=== PATIENT | female | born 1945 | race Caucasian/White ===

== ENCOUNTER 2016-11-09 01:30 | Inpatient (IN) | payer MEDICARE, OTHER ==
[2016-11-06 11:17] VITALS: BP 167/66
--- NOTE | 2016-11-06 12:31 | DIREP ---
PROCEDURE:CHEST 2 VIEWS COMPARISON:None. INDICATIONS:PRE-OP OA RT KNEE FINDINGS: LUNGS/PLEURA:No significant pulmonary parenchymal abnormalities. No effusions. VASCULATURE:Normal. Unremarkable pulmonary vasculature. CARDIAC:Normal. No cardiac silhouette abnormality or cardiomegaly. MEDIASTINUM:Normal. No visible mass or adenopathy. BONES:Mild degenerative changes of the mid-lower thoracic spine are noted. OTHER:Negative. CONCLUSION: 1. No acute cardiopulmonary disease is demonstrated. Dictated by: Abelardo Patrick M.D. on 11/06/2016 at 12:30 PM
[2016-11-06 13:45] LABS: BASOPHIL # 0.1 10^3/uL (0.0-0.1); EOSINOPHIL # 0.3 10^3/uL (0.0-0.2); EOSINOPHIL % 4.3 % (0.0-5.0); HEMATOCRIT 39.6 % (36.0-46.0); HEMOGLOBIN 13.5 g/dL (12.0-15.0); LYMPHOCYTES # 1.2 10^3/uL (1.0-4.8); LYMPHOCYTES % 19.5 % (24.0-44.0); MEAN CELL HGB 31.7 pg (26-34); MEAN CELL HGB CONCENTRATION 34.1 g/dL (33-37); MEAN PLATELET VOLUME 10.4 fL (7.8-11.0); MONOCYTES # 0.8 10^3/uL (0.3-0.8); NEUTROPHIL # 3.7 10^3/uL (1.8-7.7); NEUTROPHILS % 61.2 % (41.0-85.0); RED CELL DISTRIBUTION WIDTH 13.4 % (11.5-14.5)
[2016-11-06 14:11] LABS: ALANINE AMINOTRANSFERASE 26 U/L (12-78); ALKALINE PHOSPHATASE 71 U/L (50-136); ASPARTATE AMINO TRANSFERASE 18 U/L (0-35); GLUCOSE 83 mg/dL (70-110)
[~2016-11-09] VITALS: Ht 154.9 cm; Wt 83.7 kg
[2016-11-09] VITALS (15 sets, daily range): BP systolic 130–164; BP diastolic 67–96
[~2016-11-09 01:30] MED LIST: ANAS1TAB PO; CALC-76 PO; CHOL100011 PO; LEVO100T5 PO; LISI1TAB5 PO; MULT-235 PO; RED600TA PO; VIT-3 PO
[2016-11-09] MEDS ORDERED: NS 250ML 250 ML IV ONE (05:07)
[2016-11-09] MEDS ORDERED: BACTROBAN NASAL NS ONE ×3 (05:07→19:55)
[2016-11-09] MEDS ORDERED: LACTATED RINGERS 1,000 ML ONE ×2 (05:07→08:21)
[2016-11-09] MEDS ORDERED: VANCOMYCIN HCL 2 GM ONE (05:07)
[2016-11-09] MEDS ORDERED: VANCOMYCIN HCL 1.5 GM in NS 500ML 500 ML IV ONE (06:30)
[2016-11-09] MEDS: LACTATED RINGERS 1,000 ML IV SCH (08:19)
[2016-11-09] MEDS ORDERED: NAROPIN 5% 5 MG/ML VIAL ONE (08:19)
[2016-11-09] MEDS ORDERED: DECADRON ONE (08:19)
[2016-11-09] MEDS ORDERED: XYLOCAINE ONE ×2 (08:19→08:21)
[2016-11-09] MEDS ORDERED: EPHEDRINE SULFATE ONE (08:20)
[2016-11-09] MEDS ORDERED: ZEMURON IV ONE (08:20)
[2016-11-09] MEDS ORDERED: TORADOL ONE (08:20)
[2016-11-09] MEDS ORDERED: ZOFRAN ONE (08:20)
[2016-11-09] MEDS ORDERED: XYLOCAINE 2%-EPI 1:100,000 ONE (08:21)
[2016-11-09] MEDS ORDERED: DIPRIVAN IV ONE (08:21)
[2016-11-09] MEDS ORDERED: VERSED ONE (08:22)
[2016-11-09] MEDS ORDERED: SUBLIMAZE ONE (08:22)
[2016-11-09] MEDS ORDERED: ASTRAMORPH-PF ONE (08:26)
--- NOTE | 2016-11-09 08:39 | PCM.HP ---
History of Present Illness Reason for Visit: Right knee pain History of Present Illness 71yo female complains of right knee pain for several years. She complains of night pain and she has tired Alieve for pain with minimal relief. In 2014 she had arthroscopy with partial medial menisectomy. She has had left total knee arthroplasty several years ago with good results. Her xrays do show bone on bone laterally with patello femoral bone on bone. Past Medical History Cardiac: HTN Heme/Onc: Cancer (hx BRCA) Endocrine: Hypothyroidism Past Surgical History: Arthroscopy (right knee), Breast Biopsy, Total knee replacement (Left), Tonsillectomy Past Social History Smoke: No Alcohol: occassional Travel Hx EBOLA RISK:Travel to/contact w: No Review of Systems Musculoskeletal: : leg pain (Right knee pain) Allergies: Coded Allergies: No Known Allergies (Unverified , 11/06/16) Scheduled Anastrozole (Anastrozole) 1 TAB PO HS (Reported) Calcium Carb & Cit/Vitamin D3 (Calcium + D3 Er Tablet) 1 EACH PO BID (Reported) Levothyroxine Sodium (Levothyroxine Sodium) 100 MCG PO DAILY (Reported) Lisinopril/Hydrochlorothiazide (Lisinopril-Hctz 20-12.5 Mg Tab) 1 EACH PO DAILY (Reported) Multivitamin (Multi-Vitamin Daily) 1 EACH PO DAILY (Reported) Vit A/C/E AC/Znox/Cupric Oxide (Eye Vitamin-Minerals Tablet) 1 EACH PO BID ( Reported) Discontinued Medications Cholecalciferol (Vitamin D3) (Vitamin D) 1,000 UNIT PO DAILY (Reported) Discontinued Reason: Discontinue VTE VTE Risk Total Score: >5 VTE Risk Score VTE Risk: Score 0-1 = Low Risk (Aggressive mobilization; early ambulation; no VTE prophylaxis required) Score 2: Moderate Risk (Intermittent/Pneumatic Compression Device OR Lovenox/Heparin/Coumadin) Score 3-4: High Risk (Intermittent/Pneumatic Compression Device AND Lovenox/Heparin/Coumadin) Score > or =5: Highest Risk (Intermittent/Pneumatic Compression Device AND Lovenox/Heparin/Coumadin) VTE VTE Present on Admission: No Currently receiving anticoagul: No VTE Risk Total Score: >5 Exam Vital Signs Vital Signs Date Time Temp Pulse Resp B/P Pulse Ox O2 Delivery O2 Flow Rate FiO2 11/09/16 08:13 98.1 88 16 154/69 96 Room Air General Appearance: Alert, Oriented X3, Cooperative, No acute distress HEENT: Atraumatic Respiratory: Clear to auscultation, Normal air movement Cardiovascular: Regular rate, Normal S1, Normal S2, No murmurs Abdominal: Normal bowel sounds, Soft, No tenderness, No hepatospenomegaly Extremities: No clubbing, No cyanosis, No edema, Normal pulses, Other (Right knee full extension, 120 degrees flexion, moderate crepitation, good medial and lateral stability) Skin: No rash, No breakdown, No lesions Neuro: Normal gait, Normal speech, Strength at 5/5 X4 ext, Normal tone, Sensation intact, Cranial nerves 3-12 NL, Reflexes 2+ Psych/Mental Status: Mental status NL, Mood NL Assessment/Plan Assessment/Plan Assessment/Plan A: OA right knee P: Right total knee arthroplasty Problems: (1) Osteoarthritis of right knee Status: Chronic ICD Code: M17.11 SNOMED: 179906686 (2) HTN (hypertension) Status: Chronic ICD Code: I10 SNOMED: 62856254 (3) Hypothyroidism Status: Chronic ICD Code: E03.9 SNOMED: 88456621 (4) HX: breast cancer Status: Resolved ICD Code: Z85.3 SNOMED: 546801449 Patient History: Deafness or hearing loss 19 CHILD, Age:45 FH: kidney disease 19 CHILD, Age:45 (KIDNEY TRANSPLANT 2004) FH: mental retardation 19 CHILD, Age:45 FHx: scoliosis 19 CHILD, Age:45 Hypertension 32 MOTHER, , Age:67 33 FATHER, , Age:90 G8 BROTHER, Age:68 G8 BROTHER, Age:63 G8 SISTER, Age:67 19 CHILD, Age:45 No Family History of: Alzheimer's disease Asthma Cerebrovascular disorder Chronic obstructive pulmonary disease Congestive heart failure Diabetes insipidus Diabetes mellitus Parkinson's disease KEITH JOHNSON PAC Nov 09, 2016 08:39
[2016-11-09] MEDS ORDERED: AMBIEN PO PRN (09:00)
[2016-11-09] MEDS ORDERED: CEPACOL SORE THROAT LOZENGE MM PRN (09:00)
[2016-11-09] MEDS ORDERED: VANCOMYCIN HCL IV SCH (09:00)
[2016-11-09] MEDS: PEPCID PO SCH (09:00)
[2016-11-09] MEDS: COLACE PO SCH (09:00)
[2016-11-09] MEDS ORDERED: LACTATED RINGERS 1,000 ML IV SCH (09:00)
[2016-11-09] MEDS ORDERED: BACTROBAN NASAL NS PRN (09:00)
[2016-11-09] MEDS ORDERED: TYLENOL PO ONE (09:41)
[2016-11-09] MEDS ORDERED: TYLENOL PO STA ×2 (09:43→09:48)
[2016-11-09] MEDS ORDERED: TRANEXAMIC ACID IV ONE ×2 (10:28→11:06)
[2016-11-09] MEDS ORDERED: SODIUM CHLORIDE IR ONE ×2 (11:03→11:56)
--- NOTE | 2016-11-09 14:30 | NUR ---
Pt on unit Pt arrived on unit via bed. Received report and assumed care of pt. Special vitals started. TELE monitor applied for cont pulse ox. Fluids and snacks provided. Call light within reach. Will continue to monitor pt.
--- NOTE | 2016-11-09 16:39 | OPH ---
DATE OF SURGERY: 11/09/2016 PREOPERATIVE DIAGNOSIS: OA of the right knee. POSTOPERATIVE DIAGNOSIS: OA of the right knee. OPERATIVE PROCEDURE: Right total knee arthroplasty using Medacta Sphere knee, size 2+ femur, a size 2 tibia, 10 mm insert with a medium dome patella. All components were cemented. SURGEON: Manolo Mckeon MD ANESTHESIA: General endotracheal. TOURNIQUET TIME: 64 minutes at 300 mmHg. DRAINS: None. BLOOD LOSS: 300 mL. DESCRIPTION OF INDICATIONS: This is a 71-year-old female with a several year history of pain about the right knee. She has night pain as well as pain with household ambulation. The patient has had arthroscopy with partial meniscectomy in the past. She has also had a long trial of anti-inflammatories including Aleve and ibuprofen. She has had several cortisone injections with only temporary relief. The patient has full extension of the knee with 120 degrees of flexion, moderate crepitation, 1+ effusion, good medial and lateral stability. The x-rays showed that she has [id number] appearance of the lateral compartment of her knee as well as fairly severe patellofemoral narrowing with osteophytes. She was taken to the operating room for right total knee arthroplasty for pain relief. DESCRIPTION OF PROCEDURE: The patient was given 1 gram of vancomycin before induction of anesthesia. The patient was then given a general endotracheal anesthetic. A well-padded tourniquet was placed around the right thigh. Right lower extremity was then sterilely prepped and draped. The patient then had the leg exsanguinated with an Esmarch and then the tourniquet was inflated to 300 mmHg with a good bounce. The patient had an anterior incision made about knee. Incision was taken through the skin and the subcutaneous tissues. Full thickness flaps were developed medially and laterally. The patient had a medial parapatellar arthrotomy performed. The patient then had the patella deviated laterally. Medial and lateral meniscectomies were performed. The anterior and posterior cruciate ligaments were released. The patient had the RespectanceKnee femoral cutting guide placed about the distal femur and held into position with multiple pins. The distal femoral cut was then made with the power saw. The #2 jig, size 2+ was then placed about the distal femur. The anterior and posterior femoral cuts were made as well as the chamfer cuts. The tibia was subluxed anteriorly. The tibial cutting guide was placed and held into position with multiple pins. Tibial cut was then made. The tibia was sized and a size 2 tibial trial had the best coverage. The trial component was held into position with multiple pins. The central drill hole was used and then the cruciate punch was used to stabilize the tibial trial component. The patient then had a 10 mm insert applied. The femoral trial component was impacted. The knee went out into full extension. She had 120 degrees of passive flexion, excellent medial and lateral stability throughout the range of motion. The patella was everted. The peripheral edges were cauterized. The patellar cut was made. There was still 14 mm of patella left. The drill holes were made. A medium trial patella had good coverage and satisfactory tracking. The final medial and lateral femoral drill holes were made. The femoral sulcus cut was made. The trial components were all removed at that point and then the wounds were copiously irrigated and the bone ends were dried. The patient had the size 2 tibial component cemented into position. The polyethylene insert was then impacted and secured with an anterior screw. The femoral component was cemented as was the patellar component. Once all the excess cement was removed and the cement had hardened, the tourniquet was released. The bleeding was controlled with the Aquamantys device. The capsule was closed with a #2 PDS in interrupted [id number] manner. The joint was injected with 1 gram of tranexamic acid in 90 mL of saline. The subcutaneous was closed with a 2-0 Monocryl barbed in a running manner and then the skin was closed with william. An Aquacel dressing was applied, reinforced with a compressive dressing. The patient was extubated in the operating room, sent to recovery in stable condition. Manolo Mckeon MD DR: CHAVA/nevaeh JOB# [id number]
--- NOTE | 2016-11-09 17:10 | PRM.PN ---
Subjective Subjective Subjective Doing well Pain ok VSS NVM+ Stable Patient History: Deafness or hearing loss 19 CHILD, Age:45 FH: kidney disease 19 CHILD, Age:45 (KIDNEY TRANSPLANT 2004) FH: mental retardation 19 CHILD, Age:45 FHx: scoliosis 19 CHILD, Age:45 Hypertension 32 MOTHER, , Age:67 33 FATHER, , Age:90 G8 BROTHER, Age:68 G8 BROTHER, Age:63 G8 SISTER, Age:67 19 CHILD, Age:45 No Family History of: Alzheimer's disease Asthma Cerebrovascular disorder Chronic obstructive pulmonary disease Congestive heart failure Diabetes insipidus Diabetes mellitus Parkinson's disease VTE VTE Risk Total Score: >5 VTE Risk Score VTE Risk: Score 0-1 = Low Risk (Aggressive mobilization; early ambulation; no VTE prophylaxis required) Score 2: Moderate Risk (Intermittent/Pneumatic Compression Device OR Lovenox/Heparin/Coumadin) Score 3-4: High Risk (Intermittent/Pneumatic Compression Device AND Lovenox/Heparin/Coumadin) Score > or =5: Highest Risk (Intermittent/Pneumatic Compression Device AND Lovenox/Heparin/Coumadin) Review of Systems Musculoskeletal: : leg pain (Right knee pain) Allergies: Coded Allergies: No Known Allergies (Unverified , 11/06/16) Scheduled Anastrozole (Anastrozole) 1 TAB PO HS (Reported) Calcium Carb & Cit/Vitamin D3 (Calcium + D3 Er Tablet) 1 EACH PO BID (Reported) Levothyroxine Sodium (Levothyroxine Sodium) 100 MCG PO DAILY (Reported) Lisinopril/Hydrochlorothiazide (Lisinopril-Hctz 20-12.5 Mg Tab) 1 EACH PO DAILY (Reported) Multivitamin (Multi-Vitamin Daily) 1 EACH PO DAILY (Reported) Vit A/C/E AC/Znox/Cupric Oxide (Eye Vitamin-Minerals Tablet) 1 EACH PO BID ( Reported) Discontinued Medications Cholecalciferol (Vitamin D3) (Vitamin D) 1,000 UNIT PO DAILY (Reported) Discontinued Reason: Discontinue Objective Vitals and I/O Vital Sign - Last 24 Hours 11/09/16 11/09/16 11/09/16 11/09/16 08:04 08:13 08:30 08:35 Temp 98.1 Pulse 88 86 94 Resp 16 18 18 B/P 154/69 164/88 162/86 Pulse Ox 96 100 100 O2 Delivery Room Air Room Air Nasal Canula Nasal Canula 11/09/16 11/09/16 11/09/16 11/09/16 08:45 08:47 13:40 13:40 Temp 98.0 Pulse 87 84 91 Resp 18 18 18 B/P 161/81 163/71 142/67 Pulse Ox 100 100 98 O2 Delivery Nasal Canula Nasal Canula Nasal Canula O2 Flow Rate 3 11/09/16 11/09/16 11/09/16 11/09/16 13:45 13:50 13:55 14:00 Temp 98.2 97.8 Pulse 90 83 92 85 Resp 18 18 18 18 B/P 142/67 142/76 142/73 137/74 Pulse Ox 97 99 99 97 O2 Delivery Nasal Canula Nasal Canula Nasal Canula Room Air 11/09/16 11/09/16 11/09/16 11/09/16 14:05 14:10 14:15 14:20 Temp 98.0 Pulse 83 83 85 82 Resp 19 18 18 18 B/P 138/72 130/80 144/96 150/76 Pulse Ox 99 94 97 95 O2 Delivery Room Air Room Air Room Air Room Air 11/09/16 11/09/16 11/09/16 14:48 14:49 15:59 Pulse 77 Resp 14 14 Pulse Ox 89 89 O2 Delivery Room Air Nasal Cannula O2 Flow Rate 2.00 FiO2 21 Medication Reconciliation Scheduled Anastrozole (Anastrozole) 1 TAB PO HS (Reported) Calcium Carb & Cit/Vitamin D3 (Calcium + D3 Er Tablet) 1 EACH PO BID (Reported) Levothyroxine Sodium (Levothyroxine Sodium) 100 MCG PO DAILY (Reported) Lisinopril/Hydrochlorothiazide (Lisinopril-Hctz 20-12.5 Mg Tab) 1 EACH PO DAILY (Reported) Multivitamin (Multi-Vitamin Daily) 1 EACH PO DAILY (Reported) Vit A/C/E AC/Znox/Cupric Oxide (Eye Vitamin-Minerals Tablet) 1 EACH PO BID ( Reported) Discontinued Medications Cholecalciferol (Vitamin D3) (Vitamin D) 1,000 UNIT PO DAILY (Reported) Discontinued Reason: Discontinue Assessment/Plan Assessment/Plan Patient History: Deafness or hearing loss 19 CHILD, Age:45 FH: kidney disease 19 CHILD, Age:45 (KIDNEY TRANSPLANT 2004) FH: mental retardation 19 CHILD, Age:45 FHx: scoliosis 19 CHILD, Age:45 Hypertension 32 MOTHER, , Age:67 33 FATHER, , Age:90 G8 BROTHER, Age:68 G8 BROTHER, Age:63 G8 SISTER, Age:67 19 CHILD, Age:45 No Family History of: Alzheimer's disease Asthma Cerebrovascular disorder Chronic obstructive pulmonary disease Congestive heart failure Diabetes insipidus Diabetes mellitus Parkinson's disease ANDRY CHAUDHRY MD Nov 09, 2016 17:10
--- NOTE | 2016-11-09 17:47 | DIREP ---
PROCEDURE:XRAY KNEE 1-2 VWS-RT COMPARISON:None. INDICATIONS:post op right total knee arthroplasty FINDINGS: There is a knee replacement. There are skin william. There is no abnormal radiopaque foreign body. CONCLUSION:Total knee replacement without adverse features Dictated by: Rodriguez Bedolla Jr. on 11/09/2016 at 05:45 PM
[2016-11-09 18:06] LABS: HEMATOCRIT 39.4 % (36.0-46.0); HEMOGLOBIN 13.2 g/dL (12.0-15.0); MEAN CELL HGB 31.1 pg (26-34); MEAN CELL HGB CONCENTRATION 33.5 g/dL (33-37); MEAN CORP VOLUME 92.7 fL (78-100); MEAN PLATELET VOLUME 9.8 fL (7.8-11.0); RED CELL DISTRIBUTION WIDTH 13.3 % (11.5-14.5); WHITE BLOOD CELL 13.8 10^3/uL (4.5-11.0)
--- NOTE | 2016-11-09 18:30 | NUR ---
report receieved report took over care
[2016-11-09] MEDS ORDERED: NARCAN IV PRN (19:00)
[2016-11-09] MEDS ORDERED: BENADRYL IV PRN (19:00)
[2016-11-09] MEDS ORDERED: REGLAN IV PRN (19:00)
[2016-11-09] MEDS ORDERED: ZOFRAN IV PRN ×2 (19:00)
[2016-11-09] MEDS ORDERED: NUBAIN IV PRN ×2 (19:00)
[2016-11-09] MEDS: VANCOMYCIN HCL 1.5 GM in NS 500ML 500 ML IV SCH (19:58)
[2016-11-09] MEDS: NORCO 5 MG PO PRN (19:58)
[2016-11-09] MEDS: BACTROBAN NASAL NS SCH (19:59)
[2016-11-10 00:15] VITALS: BP 156/80
[2016-11-10] MEDS: NORCO 5 MG PO PRN ×6 (03:48→21:26)
[2016-11-10 04:00] VITALS: BP 138/56
[2016-11-10] MEDS: LACTATED RINGERS 1,000 ML IV SCH (05:10)
[2016-11-10 06:05] LABS: HEMATOCRIT 35.4 % (36.0-46.0); HEMOGLOBIN 11.8 g/dL (12.0-15.0); MEAN CELL HGB 31.1 pg (26-34); MEAN CELL HGB CONCENTRATION 33.3 g/dL (33-37); MEAN CORP VOLUME 93.4 fL (78-100); MEAN PLATELET VOLUME 10.1 fL (7.8-11.0); RED CELL DISTRIBUTION WIDTH 13.6 % (11.5-14.5); WHITE BLOOD CELL 10.5 10^3/uL (4.5-11.0)
--- NOTE | 2016-11-10 06:16 | NUR ---
report gave report relinquished care
--- NOTE | 2016-11-10 06:20 | NUR ---
Report Received report from TYRONE Ohara
--- NOTE | 2016-11-10 06:50 | NUR ---
Patient resting in bed with eyes open. Denies pain at this time. Resp even and non labored.. Denies other needs at this time. Will continue to monitor. Call light within reach.
[2016-11-10 08:38] VITALS: BP 157/71
--- NOTE | 2016-11-10 08:41 | PRM.PN ---
Subjective Subjective Subjective Awake and alert Pain better this morning No nausea this morning, better Afebrile, VSS H/H Dressing dry and intact M-N-V intact Patient History: Deafness or hearing loss 19 CHILD, Age:45 FH: kidney disease 19 CHILD, Age:45 (KIDNEY TRANSPLANT 2004) FH: mental retardation 19 CHILD, Age:45 FHx: scoliosis 19 CHILD, Age:45 Hypertension 32 MOTHER, , Age:67 33 FATHER, , Age:90 G8 BROTHER, Age:68 G8 BROTHER, Age:63 G8 SISTER, Age:67 19 CHILD, Age:45 No Family History of: Alzheimer's disease Asthma Cerebrovascular disorder Chronic obstructive pulmonary disease Congestive heart failure Diabetes insipidus Diabetes mellitus Parkinson's disease VTE VTE Risk Total Score: >5 VTE Risk Score VTE Risk: Score 0-1 = Low Risk (Aggressive mobilization; early ambulation; no VTE prophylaxis required) Score 2: Moderate Risk (Intermittent/Pneumatic Compression Device OR Lovenox/Heparin/Coumadin) Score 3-4: High Risk (Intermittent/Pneumatic Compression Device AND Lovenox/Heparin/Coumadin) Score > or =5: Highest Risk (Intermittent/Pneumatic Compression Device AND Lovenox/Heparin/Coumadin) Review of Systems Musculoskeletal: : leg pain (Right knee pain) Allergies: Coded Allergies: No Known Allergies (Unverified , 11/06/16) Scheduled Anastrozole (Anastrozole) 1 TAB PO HS (Reported) Calcium Carb & Cit/Vitamin D3 (Calcium + D3 Er Tablet) 1 EACH PO BID (Reported) Levothyroxine Sodium (Levothyroxine Sodium) 100 MCG PO DAILY (Reported) Lisinopril/Hydrochlorothiazide (Lisinopril-Hctz 20-12.5 Mg Tab) 1 EACH PO DAILY (Reported) Multivitamin (Multi-Vitamin Daily) 1 EACH PO DAILY (Reported) Vit A/C/E AC/Znox/Cupric Oxide (Eye Vitamin-Minerals Tablet) 1 EACH PO BID ( Reported) Discontinued Medications Cholecalciferol (Vitamin D3) (Vitamin D) 1,000 UNIT PO DAILY (Reported) Discontinued Reason: Discontinue Objective Vitals and I/O Vital Sign - Last 24 Hours 11/09/16 11/09/16 11/09/16 11/09/16 08:04 08:13 08:30 08:35 Temp 98.1 Pulse 88 86 94 Resp 16 18 18 B/P 154/69 164/88 162/86 Pulse Ox 96 100 100 O2 Delivery Room Air Room Air Nasal Canula Nasal Canula 11/09/16 11/09/16 11/09/16 11/09/16 08:45 08:47 13:40 13:40 Temp 98.0 Pulse 87 84 91 Resp 18 18 18 B/P 161/81 163/71 142/67 Pulse Ox 100 100 98 O2 Delivery Nasal Canula Nasal Canula Nasal Canula O2 Flow Rate 3 11/09/16 11/09/16 11/09/16 11/09/16 13:45 13:50 13:55 14:00 Temp 98.2 97.8 Pulse 90 83 92 85 Resp 18 18 18 18 B/P 142/67 142/76 142/73 137/74 Pulse Ox 97 99 99 97 O2 Delivery Nasal Canula Nasal Canula Nasal Canula Room Air 11/09/16 11/09/16 11/09/16 11/09/16 14:05 14:10 14:15 14:20 Temp 98.0 Pulse 83 83 85 82 Resp 19 18 18 18 B/P 138/72 130/80 144/96 150/76 Pulse Ox 99 94 97 95 O2 Delivery Room Air Room Air Room Air Room Air 11/09/16 11/09/16 11/09/16 11/09/16 14:48 14:49 15:59 19:55 Pulse 77 Resp 14 14 Pulse Ox 89 89 O2 Delivery Room Air Nasal Cannula Nasal Cannula O2 Flow Rate 2.00 2.00 FiO2 21 11/09/16 11/09/16 11/10/16 11/10/16 20:00 20:14 00:15 04:00 Temp 98.1 98.0 98.2 Pulse 73 87 63 83 Resp 19 14 18 18 B/P 152/79 156/80 138/56 Pulse Ox 100 92 98 91 O2 Delivery Room Air Intake and Output 11/09/16 11/10/16 11/10/16 17:00 01:00 09:00 Intake Total 6590 ml 500 ml Output Total 610 ml 1100 ml Balance 5980 ml -600 ml Medication Reconciliation Scheduled Anastrozole (Anastrozole) 1 TAB PO HS (Reported) Calcium Carb & Cit/Vitamin D3 (Calcium + D3 Er Tablet) 1 EACH PO BID (Reported) Levothyroxine Sodium (Levothyroxine Sodium) 100 MCG PO DAILY (Reported) Lisinopril/Hydrochlorothiazide (Lisinopril-Hctz 20-12.5 Mg Tab) 1 EACH PO DAILY (Reported) Multivitamin (Multi-Vitamin Daily) 1 EACH PO DAILY (Reported) Vit A/C/E AC/Znox/Cupric Oxide (Eye Vitamin-Minerals Tablet) 1 EACH PO BID ( Reported) Discontinued Medications Cholecalciferol (Vitamin D3) (Vitamin D) 1,000 UNIT PO DAILY (Reported) Discontinued Reason: Discontinue Assessment/Plan Assessment/Plan Patient History: Deafness or hearing loss 19 CHILD, Age:45 FH: kidney disease 19 CHILD, Age:45 (KIDNEY TRANSPLANT 2004) FH: mental retardation 19 CHILD, Age:45 FHx: scoliosis 19 CHILD, Age:45 Hypertension 32 MOTHER, , Age:67 33 FATHER, , Age:90 G8 BROTHER, Age:68 G8 BROTHER, Age:63 G8 SISTER, Age:67 19 CHILD, Age:45 No Family History of: Alzheimer's disease Asthma Cerebrovascular disorder Chronic obstructive pulmonary disease Congestive heart failure Diabetes insipidus Diabetes mellitus Parkinson's disease Plan Start with PT today Recheck CBC tomorrow KEITH JOHNSON PAC Nov 10, 2016 08:40
[2016-11-10] MEDS ORDERED: SINGULAIR PO SCH (09:00)
[2016-11-10] MEDS ORDERED: CLARITIN PO SCH (09:00)
[2016-11-10] MEDS ORDERED: SYNTHROID PO SCH (09:00)
[2016-11-10] MEDS: PEPCID PO SCH (09:03)
[2016-11-10] MEDS: COLACE PO SCH (09:03)
[2016-11-10] MEDS: CLARITIN PO SCH (09:04)
[2016-11-10] MEDS: XARELTO PO SCH (09:04)
[2016-11-10] MEDS: SINGULAIR PO SCH (09:05)
[2016-11-10] MEDS: BACTROBAN NASAL NS SCH ×2 (09:19→21:00)
[2016-11-10] MEDS: HYDROCHLOROTHIAZIDE PO SCH (09:46)
[2016-11-10] MEDS: ZESTRIL PO SCH (09:46)
[2016-11-10] MEDS: VANCOMYCIN HCL 1.5 GM in NS 500ML 500 ML IV SCH (10:05)
--- NOTE | 2016-11-10 10:40 | NUR ---
DISCHARGE PLANNING: SS VISITED WITH PT AND SPOUSE REGARDING DISCHARGE PLANNING NEEDS. PT LIVES HOME WITH HER IN [place]. 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 PT HAD A WALKER THAT HER HAD USED FOR HIS KNEE REPLACEMENTS, BUT PHYSICAL THERAPY VOICED CONCERNS WITH PT'S SAFETY USING THAT WALKER. PT STATED SHE WOULD BE OKAY WITH THIS WORKER GETTING HER A WALKER THAT WOULD BE FITTED FOR HER. PT'S GOAL IS TO RETURN HOME WITH SPOUSE AND ATTEND OUT PATIENT THERAPY AT [facility]. CHOICE LETTER PRESENTED, SIGNED, AND PLACED IN PT'S CHART. SS FAXED OVER [facility] ON ORDER FOR FOR A WALKER, AND NATALIE STATED SHE WOULD HAVE A WALKER DELIVERED THIS AFTERNOON FOR PT. SS NOTIFIED ANNA WITH THE [facility] OF PT WANTING TO ATTEND OUTPATIENT THERE, AND INFORMATION WAS FAXED OVER. NO FURTHER SS NEEDS NOTED AT THIS TIME. PT SAFETY HANDOUT ADDRESSED, NO QUESTIONS ASKED, UNDERSTANDING VERBALIZED. SS TO CONTINUE TO FOLLOW AND MONITOR DISCHARGE PLANNING NEEDS.
--- NOTE | 2016-11-10 11:04 | NUR ---
Patient sitting up in recliner. Denies pain/needs at this time. Will continue to monitor. Call light within reach.
--- NOTE | 2016-11-10 12:13 | NUR ---
Dr Mckeon at bedside
[2016-11-10] MEDS ORDERED: NORCO 5 MG PO ONE (12:24)
[2016-11-10 12:54] VITALS: BP 170/70
--- NOTE | 2016-11-10 15:30 | NUR ---
Notified PT about coming up for Fitting patient for CPM. PT stated " they will be up as soon as they were done with outpatients"
[2016-11-10 18:23] VITALS: BP 150/67
--- NOTE | 2016-11-10 19:06 | NUR ---
Report Report given to Calixto Perez RN
[2016-11-10] MEDS: ARIMIDEX PO SCH (21:13)
[2016-11-11] VITALS: BP 182/76
[2016-11-11] MEDS: NORCO 5 MG PO PRN ×6 (01:49→19:46)
--- NOTE | 2016-11-11 01:49 | NUR ---
CPM CPM on, pain med given as ordered PRN, call light within easy reach.
[2016-11-11 04:00] VITALS: BP 177/76
--- NOTE | 2016-11-11 05:12 | NUR ---
pt on CPM, unable to get weight
[2016-11-11] MEDS: SYNTHROID PO SCH (05:45)
[2016-11-11] MEDS: LACTATED RINGERS 1,000 ML IV SCH (06:00)
[2016-11-11 06:13] LABS: BASOPHIL % 0.3 % (0.0-0.2); EOSINOPHIL # 0.1 10^3/uL (0.0-0.2); EOSINOPHIL % 0.8 % (0.0-5.0); HEMATOCRIT 35.5 % (36.0-46.0); HEMOGLOBIN 12.1 g/dL (12.0-15.0); LYMPHOCYTES % 9.9 % (24.0-44.0); MEAN CELL HGB 31.8 pg (26-34); MEAN CELL HGB CONCENTRATION 34.1 g/dL (33-37); MEAN CORP VOLUME 93.4 fL (78-100); MEAN PLATELET VOLUME 10.3 fL (7.8-11.0); MONOCYTES # 1.2 10^3/uL (0.3-0.8); MONOCYTES % 11.6 % (5.0-12.0); NEUTROPHIL # 7.8 10^3/uL (1.8-7.7); NEUTROPHILS % 77.2 % (41.0-85.0); RED CELL DISTRIBUTION WIDTH 13.5 % (11.5-14.5); WHITE BLOOD CELL 10.1 10^3/uL (4.5-11.0)
[2016-11-11] MEDS: CLARITIN PO SCH (08:55)
[2016-11-11] MEDS: PEPCID PO SCH (08:55)
[2016-11-11] MEDS: COLACE PO SCH (08:55)
[2016-11-11] MEDS: HYDROCHLOROTHIAZIDE PO SCH (08:55)
[2016-11-11] MEDS: XARELTO PO SCH (08:55)
[2016-11-11] MEDS: ZESTRIL PO SCH (08:56)
[2016-11-11] MEDS: SINGULAIR PO SCH (08:56)
[2016-11-11] MEDS: BACTROBAN NASAL NS SCH ×2 (09:00→21:00)
--- NOTE | 2016-11-11 09:50 | NUR ---
Valencia removed Valencia catheter removed at this time. 9 cc of fluid removed from balloon. 900ml of clear yellow urine drained. Educated patient on dtv time, patient verbalized understanding. Will continue to monitor. Call light within reach.
[2016-11-11 10:00] VITALS: BP 167/79
--- NOTE | 2016-11-11 10:59 | PRM.PN ---
Subjective Subjective Subjective More ambulatory Pain some better Afebrile HGB 12 Cont with PT DC mario Patient History: Deafness or hearing loss 19 CHILD, Age:45 FH: kidney disease 19 CHILD, Age:45 (KIDNEY TRANSPLANT 2004) FH: mental retardation 19 CHILD, Age:45 FHx: scoliosis 19 CHILD, Age:45 Hypertension 32 MOTHER, , Age:67 33 FATHER, , Age:90 G8 BROTHER, Age:68 G8 BROTHER, Age:63 G8 SISTER, Age:67 19 CHILD, Age:45 No Family History of: Alzheimer's disease Asthma Cerebrovascular disorder Chronic obstructive pulmonary disease Congestive heart failure Diabetes insipidus Diabetes mellitus Parkinson's disease VTE VTE Risk Total Score: >5 VTE Risk Score VTE Risk: Score 0-1 = Low Risk (Aggressive mobilization; early ambulation; no VTE prophylaxis required) Score 2: Moderate Risk (Intermittent/Pneumatic Compression Device OR Lovenox/Heparin/Coumadin) Score 3-4: High Risk (Intermittent/Pneumatic Compression Device AND Lovenox/Heparin/Coumadin) Score > or =5: Highest Risk (Intermittent/Pneumatic Compression Device AND Lovenox/Heparin/Coumadin) Review of Systems Musculoskeletal: : leg pain (Right knee pain) Allergies: Coded Allergies: No Known Allergies (Unverified , 11/06/16) Scheduled Anastrozole (Anastrozole) 1 TAB PO HS (Reported) Calcium Carb & Cit/Vitamin D3 (Calcium + D3 Er Tablet) 1 EACH PO BID (Reported) Levothyroxine Sodium (Levothyroxine Sodium) 100 MCG PO DAILY (Reported) Lisinopril/Hydrochlorothiazide (Lisinopril-Hctz 20-12.5 Mg Tab) 1 EACH PO DAILY (Reported) Multivitamin (Multi-Vitamin Daily) 1 EACH PO DAILY (Reported) Vit A/C/E AC/Znox/Cupric Oxide (Eye Vitamin-Minerals Tablet) 1 EACH PO BID ( Reported) Discontinued Medications Cholecalciferol (Vitamin D3) (Vitamin D) 1,000 UNIT PO DAILY (Reported) Discontinued Reason: Discontinue Objective Vitals and I/O Vital Sign - Last 24 Hours 11/10/16 11/10/16 11/10/16 11/10/16 09:46 09:46 11:15 12:54 Temp 98.0 Pulse 73 Resp 18 B/P 157/71 157/71 170/70 Pulse Ox 96 O2 Delivery Nasal Cannula Room Air O2 Flow Rate 2.00 11/10/16 11/10/16 11/11/16 11/11/16 18:23 22:05 00:00 04:00 Temp 100.0 99.6 99.2 Pulse 74 75 89 86 Resp 18 18 18 18 B/P 150/67 182/76 177/76 Pulse Ox 96 96 91 91 O2 Delivery Room Air Room Air Room Air Room Air 11/11/16 11/11/16 11/11/16 11/11/16 06:18 08:01 08:55 08:56 B/P 167/79 167/79 O2 Delivery Nasal Cannula Nasal Cannula O2 Flow Rate 2.00 2.00 11/11/16 11/11/16 09:16 10:00 Temp 98.4 Pulse 94 84 Resp 18 18 B/P 167/79 Pulse Ox 98 93 O2 Delivery Room Air FiO2 21 Intake and Output 11/10/16 11/11/16 11/11/16 17:00 01:00 09:00 Output Total 650 ml 2700 ml Balance -650 ml -2700 ml Medication Reconciliation Scheduled Anastrozole (Anastrozole) 1 TAB PO HS (Reported) Calcium Carb & Cit/Vitamin D3 (Calcium + D3 Er Tablet) 1 EACH PO BID (Reported) Levothyroxine Sodium (Levothyroxine Sodium) 100 MCG PO DAILY (Reported) Lisinopril/Hydrochlorothiazide (Lisinopril-Hctz 20-12.5 Mg Tab) 1 EACH PO DAILY (Reported) Multivitamin (Multi-Vitamin Daily) 1 EACH PO DAILY (Reported) Vit A/C/E AC/Znox/Cupric Oxide (Eye Vitamin-Minerals Tablet) 1 EACH PO BID ( Reported) Discontinued Medications Cholecalciferol (Vitamin D3) (Vitamin D) 1,000 UNIT PO DAILY (Reported) Discontinued Reason: Discontinue Assessment/Plan Assessment/Plan Patient History: Deafness or hearing loss 19 CHILD, Age:45 FH: kidney disease 19 CHILD, Age:45 (KIDNEY TRANSPLANT 2004) FH: mental retardation 19 CHILD, Age:45 FHx: scoliosis 19 CHILD, Age:45 Hypertension 32 MOTHER, , Age:67 33 FATHER, , Age:90 G8 BROTHER, Age:68 G8 BROTHER, Age:63 G8 SISTER, Age:67 19 CHILD, Age:45 No Family History of: Alzheimer's disease Asthma Cerebrovascular disorder Chronic obstructive pulmonary disease Congestive heart failure Diabetes insipidus Diabetes mellitus Parkinson's disease ANDRY CHAUDHRY MD Nov 11, 2016 10:59
--- NOTE | 2016-11-11 13:55 | NUR ---
CPM CPM machine applied to right leg. Will continue to monitor
[2016-11-11 15:55] VITALS: BP 133/86
--- NOTE | 2016-11-11 18:40 | NUR ---
report received report from offgoing shift
[2016-11-11 19:29] VITALS: BP 166/68
[2016-11-11] MEDS: ARIMIDEX PO SCH (21:30)
[2016-11-12 00:03] VITALS: BP 162/72
--- NOTE | 2016-11-12 02:19 | NUR ---
monitor pt asleep. No s/sx of any distress. Place on iceman and SCDs. Call light within reach. Will continue to monitor.
[2016-11-12] MEDS: NORCO 5 MG PO PRN ×2 (03:54→08:49)
[2016-11-12 05:06] VITALS: BP 171/85
[2016-11-12] MEDS: LACTATED RINGERS 1,000 ML IV SCH (06:00)
[2016-11-12] MEDS: SYNTHROID PO SCH (06:11)
[2016-11-12 08:00] VITALS: BP 175/87
[2016-11-12] MEDS: COLACE PO SCH (08:49)
[2016-11-12] MEDS: SINGULAIR PO SCH (08:50)
[2016-11-12] MEDS: XARELTO PO SCH (08:50)
[2016-11-12] MEDS: PEPCID PO SCH (08:50)
[2016-11-12] MEDS: HYDROCHLOROTHIAZIDE PO SCH (08:50)
[2016-11-12] MEDS: ZESTRIL PO SCH (08:50)
[2016-11-12] MEDS: CLARITIN PO SCH (08:50)
--- NOTE | 2016-11-12 10:54 | PRM.PN ---
Subjective Subjective Subjective Independent with PT and OT Afebrile VSS Wound ok Will dc Appt in 4 days Patient History: Deafness or hearing loss 19 CHILD, Age:45 FH: kidney disease 19 CHILD, Age:45 (KIDNEY TRANSPLANT 2004) FH: mental retardation 19 CHILD, Age:45 FHx: scoliosis 19 CHILD, Age:45 Hypertension 32 MOTHER, , Age:67 33 FATHER, , Age:90 G8 BROTHER, Age:68 G8 BROTHER, Age:63 G8 SISTER, Age:67 19 CHILD, Age:45 No Family History of: Alzheimer's disease Asthma Cerebrovascular disorder Chronic obstructive pulmonary disease Congestive heart failure Diabetes insipidus Diabetes mellitus Parkinson's disease VTE VTE Risk Total Score: >5 VTE Risk Score VTE Risk: Score 0-1 = Low Risk (Aggressive mobilization; early ambulation; no VTE prophylaxis required) Score 2: Moderate Risk (Intermittent/Pneumatic Compression Device OR Lovenox/Heparin/Coumadin) Score 3-4: High Risk (Intermittent/Pneumatic Compression Device AND Lovenox/Heparin/Coumadin) Score > or =5: Highest Risk (Intermittent/Pneumatic Compression Device AND Lovenox/Heparin/Coumadin) Review of Systems Musculoskeletal: : leg pain (Right knee pain) Allergies: Coded Allergies: No Known Allergies (Unverified , 11/06/16) Scheduled Anastrozole (Anastrozole) 1 TAB PO HS (Reported) Calcium Carb & Cit/Vitamin D3 (Calcium + D3 Er Tablet) 1 EACH PO BID (Reported) Levothyroxine Sodium (Levothyroxine Sodium) 100 MCG PO DAILY (Reported) Lisinopril/Hydrochlorothiazide (Lisinopril-Hctz 20-12.5 Mg Tab) 1 EACH PO DAILY (Reported) Multivitamin (Multi-Vitamin Daily) 1 EACH PO DAILY (Reported) Vit A/C/E AC/Znox/Cupric Oxide (Eye Vitamin-Minerals Tablet) 1 EACH PO BID ( Reported) Discontinued Medications Cholecalciferol (Vitamin D3) (Vitamin D) 1,000 UNIT PO DAILY (Reported) Discontinued Reason: Discontinue Objective Vitals and I/O Vital Sign - Last 24 Hours 11/11/16 11/11/16 11/11/16 11/11/16 15:55 19:29 20:00 21:00 Temp 98.2 Pulse 78 88 91 Resp 18 18 16 B/P 133/86 166/68 Pulse Ox 94 95 94 O2 Delivery Room Air Room Air 11/12/16 11/12/16 11/12/16 11/12/16 00:03 05:06 08:00 08:00 Temp 98.2 98.0 97.8 Pulse 88 91 101 Resp 20 18 20 B/P 162/72 171/85 175/87 Pulse Ox 94 94 95 O2 Delivery Room Air 11/12/16 11/12/16 08:50 08:50 B/P 171/85 171/85 Intake and Output 11/11/16 11/11/16 11/12/16 15:00 23:00 07:00 Output Total 500 ml 200 ml Balance -500 ml -200 ml Medication Reconciliation Scheduled Anastrozole (Anastrozole) 1 TAB PO HS (Reported) Calcium Carb & Cit/Vitamin D3 (Calcium + D3 Er Tablet) 1 EACH PO BID (Reported) Levothyroxine Sodium (Levothyroxine Sodium) 100 MCG PO DAILY (Reported) Lisinopril/Hydrochlorothiazide (Lisinopril-Hctz 20-12.5 Mg Tab) 1 EACH PO DAILY (Reported) Multivitamin (Multi-Vitamin Daily) 1 EACH PO DAILY (Reported) Vit A/C/E AC/Znox/Cupric Oxide (Eye Vitamin-Minerals Tablet) 1 EACH PO BID ( Reported) Discontinued Medications Cholecalciferol (Vitamin D3) (Vitamin D) 1,000 UNIT PO DAILY (Reported) Discontinued Reason: Discontinue Assessment/Plan Assessment/Plan Patient History: Deafness or hearing loss 19 CHILD, Age:45 FH: kidney disease 19 CHILD, Age:45 (KIDNEY TRANSPLANT 2004) FH: mental retardation 19 CHILD, Age:45 FHx: scoliosis 19 CHILD, Age:45 Hypertension 32 MOTHER, , Age:67 33 FATHER, , Age:90 G8 BROTHER, Age:68 G8 BROTHER, Age:63 G8 SISTER, Age:67 19 CHILD, Age:45 No Family History of: Alzheimer's disease Asthma Cerebrovascular disorder Chronic obstructive pulmonary disease Congestive heart failure Diabetes insipidus Diabetes mellitus Parkinson's disease ANDRY CHAUDHRY MD Nov 12, 2016 10:54
[2016-11-12] MEDS ORDERED: ACET-687 PO (12:06)
[2016-11-12 13:16] VITALS: BP 171/85
--- NOTE | 2016-11-12 20:21 | DSH ---
DATE OF DISCHARGE: 11/12/2016 ADMITTING DIAGNOSES: Include osteoarthritis of the right knee, hypothyroidism and hypertension. DISCHARGE DIAGNOSES: Include osteoarthritis of the right knee, hypothyroidism and hypertension. OPERATIVE PROCEDURE DATE: 11/09/2016. PROCEDURE PERFORMED: Right total knee arthroplasty. CONSULTATIONS: None. COMPLICATIONS: None. SUMMARY OF ADMISSION: The patient is a 71-year-old female with long history of pain about the right knee secondary to osteoarthritis. She tried home therapy as well as bracing. She also tried different anti-inflammatories and has had several cortisone injections with only temporary relief. The x-rays showed that she was [id number] and therefore taken to the operating room for right total knee arthroplasty. Postoperatively, the patient has done well. The patient had physical therapy and occupational therapy started on 11/09/2016. She has been weightbearing as tolerated. She has been on a regular diet, which she tolerated well. Her vital signs and urine output have been stable throughout the hospital course. On discharge, the patient's wound is benign. She has full extension and 90 degrees of passive flexion. The patient is able to transfer in and out of bed independently and able to take care of her own personal bathroom needs. The patient is going to be discharged today on 11/12/2016. She will be asked to use aspirin 81 mg twice a day for the next month for DVT prophylaxis. She has been on Xarelto as well as early ambulation and had foot pump, SCDs while in the hospital. The patient will be given a prescription for Tylenol #4 for the pain 1-2 q.4 hours p.r.n. pain. The patient will be instructed to use her walker and weightbear as tolerated. She will have physical therapy at the [facility] in [place]. She will be seen back in my office in 5 days. Manolo Mckeon MD DR: CHAVA/nevaeh JOB# [id number]
--- NOTE | 2016-11-21 18:26 | PRM.ACF1 ---
Admission Criteria Forms PAIN MANAGEMENT GR Clinical Indications for Admission to Inpatient Care (Place 'X' for any and all applicable criteria): Hospital admission is needed for appropriate care of the patient because of 1 or more of the following are present (1)(2)(3)(4)(5): [ ]I. Severe pain requiring acute inpatient management as indicated by 1 or more of the following (2)(5)(10): [ ]a) Continuous or frequent (eg, every 2 to 4 hours) parenteral analgesics required [A] [ ]b) Necessity (ie, alternative approaches not effective) for analgesic regimen that can only be performed or initiated in inpatient setting [ X]II. Pain causing debilitation to the point of inability to function or be supported at any other level of care [ ]III. Severe side effects from pain medications as indicated by ANY ONE of the following (12)(13)(14)(15): [ ]a) Uncontrollable seizures [ ]b) Cardiac arrhythmias of immediate concern [ ]c) Dehydration that is severe or persistent [ ]d) Vomiting that is severe or persistent [ ]e) Altered mental status that is severe or persistent [ ]f) Obstipation with inadequate GI function to maintain nutrition The original [employer] content created by [employer] has been revised. The portions of the content which have been revised are identified through the use of italic text or in bold, and [employer] has neither reviewed nor approved the modified material. All other unmodified content is copyright [employer]. Please see references footnoted in the original [employer] edition 2016 Is AC/hSayan's added/comple: YES SNEHAL MCCAULEY [facility] November 21, 2016 18:26
== END 2016-11-12 13:45 | disposition home or self-care (01) | DRG 470 ==
LOC: MS 01:30
PROVIDERS: ADMIT Orthopaedic Surgery; ATTEND Orthopaedic Surgery
PROC: 0SRC0J9 Replacement of Right Knee Joint with Synthetic Substitute, Cemented, Open Approach (ICD-10-PCS; principal; 2016-11-09 11:16)
DX: M17.11 Unilateral primary osteoarthritis, right knee (principal); I10 Essential (primary) hypertension; Z96.652 Presence of left artificial knee joint; E03.9 Hypothyroidism, unspecified; Z85.3 Personal history of malignant neoplasm of breast; Z79.899 Other long term (current) drug therapy; Z82.49 Family history of ischemic heart disease and other diseases of the circulatory system; Z81.8 Family history of other mental and behavioral disorders; Z84.1 Family history of disorders of kidney and ureter
CPT/HCPCS: 36415; 64447; 71020; 73560; 80053; 85025; 85027; 87070; 93005; 97161; 97166; J1100; J1885; J2250; J2405; J3010; J3490; J7030; J7040; J7050; J7120; J8999; 97110-GP; 97116-GP; 97535-GO; 97760-GP; A9270; C1776; G8978-CL; G8979-CK; G8987; G8988; J2001; J2274; J2795

== ENCOUNTER 2016-11-26 22:59 | Emergency (ER) | payer MEDICARE, OTHER ==
[~2016-11-26] VITALS: Ht 154.9 cm; Wt 72.6 kg
[~2016-11-26 22:59] MED LIST changes: +ACET-687 PO
--- NOTE | 2016-11-26 23:05 | ER.PDOC ---
General Chief Complaint: Requesting Medical Care Stated Complaint: FALL/KNEE INJURY Time seen by MD: 23:05 Source: patient Exam Limitations: no limitations History of Present Illness Allergies: Coded Allergies: No Known Allergies (Unverified , 11/06/16) Home Meds Reported Medications Acetaminophen With Codeine (TYLENOL WITH CODEINE #4 TABLET) 1 Each Tablet, 1-2 EACH PO Q4HR Y for PAIN, TABLET 11/12/16 Anastrozole (ANASTROZOLE) 1 Mg Tablet, 1 TAB PO HS, #30 TAB 5 Refills 11/06/16 Calcium Carb & Cit/Vitamin D3 (CALCIUM + D3 ER TABLET) 1 Each Tablet.er, 1 EACH PO BID 11/06/16 Vit A/C/E AC/Znox/Cupric Oxide (Eye Vitamin-Minerals Tablet) 7,160-113 Tablet, 1 EACH PO BID, TABLET 11/06/16 Multivitamin (MULTI-VITAMIN DAILY) 1 Each Tablet, 1 EACH PO DAILY, TABLET 12/07/14 Levothyroxine Sodium (LEVOTHYROXINE SODIUM) 100 Mcg Tablet, 100 MCG PO DAILY, TABLET 12/07/14 Lisinopril/Hydrochlorothiazide (LISINOPRIL-HCTZ 20-12.5 MG TAB) 1 Each Tablet, 1 EACH PO DAILY, TABLET 12/07/14 Vital Signs First Vital Signs Date Time Temp Pulse Resp B/P (MAP) Pulse Ox O2 Delivery O2 Flow Rate FiO2 11/26/16 23:02 98.4 92 18 97 11/26/16 23:14 90/51 (64) Last Vital Signs Date Time Temp Pulse Resp B/P (MAP) Pulse Ox O2 Delivery O2 Flow Rate FiO2 11/26/16 23:14 98.4 93 20 90/51 (64) 98 Past Medical History Surgical History: other (Right totak knee) Social History Smoking: non-smoker Reviewed Nursing Reviewed: Vital Signs, Abn. Noted, Nursing Assessment Review of Systems Constitutional: no symptoms reported EENTM: no symptoms reported Respiratory: no symptoms reported Cardiovascular: no symptoms reported Gastrointestinal: no symptoms reported Genitourinary: no symptoms reported Musculoskeletal: see HPI Skin: no symptoms reported All Other Systems: Reviewed and Negative Physical Exam General Appearance: Alert, No Apparent Distress Foot: nml inspection Ankle: nml inspection Knee: deformity (open wound lower 1/2 of TKA. Acutely, minor clots present, no active bleeding. Sub Q stitches intact. Skin open.) Neuro/Vasc/Tendon: sensation nml, motor nml Skin: warm/dry Head/ENT: nml inspection Neck/Back: nml inspection Abdomen: non-tender EKG/XRAY/CT/US XRAY Comments: small effusion per radiology, intact hardware, right knee Departure Time of Disposition: 23:49 Disposition: 01 HOME, SELF-CARE Impression: Primary Impression: UNSPECIFIED OPEN WOUND, RIGHT KNEE, INITIAL ENCOUNTER Condition: Stable Referrals: PCP,UNKNOWN (PCP) PRIMARY CARE PROVIDER Additional Instructions: keep clean and dry dressing for now, see Dr. Mckeon in AM ROBERTH MCCLELLAN MD November 26, 2016 23:05
--- NOTE | 2016-11-26 23:37 | DIREP ---
PROCEDURE:XRAY KNEE 1-2 VWS-RT COMPARISON:[facility], , XRAY KNEE 1-2 VWS-RT, 11/09/2016, 01:40 PM. INDICATIONS:fall, knee pain, rt prosthetic knee (nov 09), Open wound (operation incision) FINDINGS: BONES:Right knee arthroplasty JOINTS:Anatomic alignment. Small joint effusion should be considered. SOFT TISSUES:Mild lateral superficial soft tissue swelling. OTHER:No additional findings. CONCLUSION: No evidence of orthopedic hardware complication or acute fracture. Mild lateral soft tissue swelling. Small joint effusion Dictated by: Rajeev Nichols M.D. on 11/26/2016 at 11:35 PM
--- NOTE | 2016-11-26 23:49 | NUR ---
RIGHT KNEE CLEANSE WITH PROVIDONE IODINE 10% SOLUTION WAITED FOR 5 MINS AND THEN CLEANSED WITH NORMAL SALINE SOLUTION, COVERED WITH TELFA DRESSING AND SECURED WITH TAPE ALL UNDER STERILE FIELD.
[2016-11-27 00:13] VITALS: BP 158/68
== END 2016-11-27 00:05 | disposition home or self-care (01) ==
LOC: ER 22:59
DX: S81.001A Unspecified open wound, right knee, initial encounter (principal); Z79.899 Other long term (current) drug therapy; W19.XXXA Unspecified fall, initial encounter; Y93.89 Activity, other specified; Y92.89 Other specified places as the place of occurrence of the external cause; Y99.9 Unspecified external cause status
CPT/HCPCS: 73560; 99284

== ENCOUNTER → 2016-11-27 | Day surgery (SDC) | payer MEDICARE, OTHER ==
[2016-11-27] VITALS (13 sets, daily range): BP systolic 154–188; BP diastolic 55–90
[~2016-11-27] VITALS: Ht 154.9 cm; Wt 76.2 kg
[~2016-11-27] MED LIST changes: +DIPRIVAN IV ONE; +LACTATED RINGERS 1,000 ML IV ONE; +LACTATED RINGERS 1,000 ML IV SCH; +LACTATED RINGERS 1,000 ML ONE; +NORCO 5 MG PO ONE; +NORCO 5 MG PO PRN; +NS 250ML 250 ML IV ONE; +SENSORCAINE-EPI 0.25%-0.0005 ONE; +SENSORCAINE-MPF 0.5% VIAL ONE; +SODIUM CHLORIDE IR ONE; +SUBLIMAZE IV ONE; +SUBLIMAZE ONE; +TORADOL ONE; +TRANDATE IV ONE; +VANCOMYCIN HCL 2 GM ONE; +XYLOCAINE ONE; +ZOFRAN ONE
--- NOTE | 2016-11-27 19:12 | OPH ---
DATE OF SURGERY: 11/27/2016 PREOPERATIVE DIAGNOSIS: Right knee wound dehiscence. POSTOPERATIVE DIAGNOSIS: Right knee wound dehiscence. OPERATIVE PROCEDURE: Incision and debridement of right knee with primary wound closure. We used a #10 blade and debrided skin and subcutaneous tissue as well as the Versajet system. SURGEON: Manolo Mckeon MD ANESTHESIA: General endotracheal. TOURNIQUET TIME: 37 minutes at 300 mmHg. BLOOD LOSS: 20 mL. DESCRIPTION OF INDICATIONS: The patient is a 71-year-old female. She is approximately 18 days out from right total knee arthroplasty. She fell last night at home and suffered a wound dehiscence of the anterior portion of her wound. She was seen in the office earlier this morning after being seen in the Emergency Room late last night. She had a wound dehiscence involving the middle to distal portion of her wound, it was 9 cm in length and 1 cm in width. The x-rays were negative for any fractures. She was able to do a straight leg raise against resistance. The patient was taken to the operating room for the above procedure. DESCRIPTION OF PROCEDURE: The patient was placed on the operating table in the supine position. General endotracheal anesthetic was induced without difficulty. The patient had a well-padded tourniquet placed around the right thigh. The right lower extremity was then sterilely prepped and draped. The leg was elevated for 60 seconds and then the tourniquet was inflated to 300 mmHg. The initial incision over the anterior portion of the wound was excised in an elliptical manner. We then used the Versajet system to clean up any exudate or questionably bowel material about the base of the wound as well as around the edges. Using some Metzenbaum scissors, full thickness skin flaps were developed medially and laterally. The wound edges appeared to be healthy and clean and therefore the subcutaneous was closed with a 2-0 Monocryl in an interrupted manner. The skin was then closed with william. The patient had the compressive dressing applied. She was extubated in the operating room, sent to recovery in stable condition. Manolo Mckeon MD DR: CHAVA/nevaeh JOB# [id number]
== END ==
LOC: SURG 10:15
PROVIDERS: ATTEND Orthopaedic Surgery
DX: T81.30XA Disruption of wound, unspecified, initial encounter (principal)
CPT/HCPCS: 13160; J1885; J2405; J3010 ×2; J3490 ×3; J7030; J7050; J7120